=== PATIENT | male | born 1960 | race Caucasian/White ===

== ENCOUNTER 2018-02-10 17:05 | Emergency (ER) | payer OTHER ==
[~2018-02-10] VITALS: Ht 180.3 cm; Wt 94.3 kg
[~2018-02-10 17:05] MED LIST: ANTIINFLAMMATORY; APAP500 PO; AUGMENTIN 875875 MG PO; DOXYCYCLINE 10100 MG PO; DYMISTA NASAL S23 GM NS; MEDROLDOSEPACK PO; METFORMIN HCL500 MG PO; NAPROSYN500 MG PO; PROAIR HFA8.5 GM INH; PROAIR RESPICL90 MCG IH; ZPAK PO
[2018-02-10] MEDS ORDERED: HYDROCODONE-AP1 EAC6 PO (17:32)
[2018-02-10] MEDS ORDERED: IBUPROFEN 800800 M1 PO (17:32)
[2018-02-10] MEDS ORDERED: ZPAK PO (17:32)
[2018-02-10] MEDS ORDERED: AMOXICILLIN 50500 MG PO (17:32)
[2018-02-10] MEDS ORDERED: HYDROCODONE-ACE15 ML PO (17:54)
[2018-02-10] MEDS ORDERED: PENICILLIN VK500 MG PO (17:54)
[2018-02-10 18:04] VITALS: BP 147/94
== END 2018-02-10 18:06 | disposition home or self-care (01) ==
LOC: M.ERS 17:05
DX: M27.69 Other endosseous dental implant failure (principal); T81.4XXA Infection following a procedure, initial encounter; K04.7 Periapical abscess without sinus; Z88.1 Allergy status to other antibiotic agents; Y83.8 Other surgical procedures as the cause of abnormal reaction of the patient, or of later complication, without mention of misadventure at the time of the procedure; Y92.89 Other specified places as the place of occurrence of the external cause

== ENCOUNTER 2018-06-02 02:24 | Emergency (ER) | payer OTHER ==
[~2018-06-02] VITALS: Ht 177.8 cm; Wt 89.8 kg
[~2018-06-02 02:24] MED LIST changes: +AMOXICILLIN 50500 MG PO; +HYDROCODONE-ACE15 ML PO; +HYDROCODONE-AP1 EAC6 PO; +IBUPROFEN 800800 M1 PO; +PENICILLIN VK500 MG PO
[2018-06-02 02:28] VITALS: BP 128/75
[2018-06-02] MEDS ORDERED: OXYCONTIN10 M1 PO (02:39)
== END 2018-06-02 03:40 | disposition home or self-care (01) ==
LOC: M.ERS 02:24
DX: R07.89 Other chest pain (principal); Z87.01 Personal history of pneumonia (recurrent); Z88.1 Allergy status to other antibiotic agents

== ENCOUNTER 2018-07-20 23:59 | Emergency (ER) | payer OTHER ==
[~2018-07-20] VITALS: Ht 182.9 cm; Wt 90.7 kg
[~2018-07-20 23:59] MED LIST changes: +OXYCONTIN10 M1 PO
[2018-07-21] MEDS ORDERED: BACTRIM DS TAB1 EACH PO (00:53)
[2018-07-21 01:00] VITALS: BP 136/74
== END 2018-07-21 01:00 | disposition left against medical advice (07) ==
LOC: M.ERS 23:59
DX: H60.11 Cellulitis of right external ear (principal)

== ENCOUNTER 2018-10-17 06:32 | Emergency (ER) | payer OTHER ==
[~2018-10-17] VITALS: Ht 175.3 cm; Wt 68.0 kg
[~2018-10-17 06:32] MED LIST changes: +BACTRIM DS TAB1 EACH PO
== END 2018-10-17 06:52 | disposition left against medical advice (07) ==
LOC: M.ERS 06:32
DX: H02.89 Other specified disorders of eyelid (principal); Z87.01 Personal history of pneumonia (recurrent); Z88.1 Allergy status to other antibiotic agents

== ENCOUNTER 2019-02-23 17:36 | Inpatient (IN) | payer OTHER ==
[~2019-02-23] VITALS: Ht 180.3 cm; Wt 40.3 kg
[2019-02-23 17:37] VITALS: BP 147/85
[2019-02-23] MEDS ORDERED: IBUPROFEN 600600 M1 PO (17:53)
[2019-02-23] MEDS ORDERED: DIET PILL PO (17:53)
[2019-02-23] MEDS ORDERED: NASAL SPRAY (17:54)
[2019-02-23 18:01] LABS: ABSOLUTE EOSINOPHILS 0.1 thou/uL (0.0-0.7); ABSOLUTE LYMPHOCYTES 2.4 thou/uL (0.8-5.3); ABSOLUTE NEUTROPHILS 5.2 thou/uL (1.6-8.1); BASOPHILS 0.5 %; EOSINOPHILS 0.8 %; HEMATOCRIT 39.9 % (42.0-52.0); HEMOGLOBIN 13.3 gm/dL (14.0-18.0); LYMPHOCYTES 27.4 %; MCH 29.6 pg (26.0-34.0); MCHC 33.3 g/dL (28.0-37.0); MCV 88.9 fL (80.0-100.0); MONOCYTES 11.9 %; MPV 8.1 fl. (7.2-11.1); NUCLEATED RBCS 0 /100WBC; PLATELET COUNT* 267 thou/uL (150-400); POLYS 59.4 %; RBC 4.49 mil/uL (4.50-6.00); RDW-CV 14.7 % (10.5-14.5); WBC 8.8 thou/uL (4.0-11.0)
[2019-02-23 18:10] LABS: ANION GAP 13 mmol/L (7-16); BUN 17 mg/dL (7-18); CALCIUM 9.4 mg/dL (8.5-10.1); CHLORIDE 107 mmol/L (98-107); CO2 26 mmol/L (21-32); CREATININE 1.2 mg/dL (0.6-1.3); GLUCOSE 142 mg/dL (70-99); POTASSIUM 4.2 mmol/L (3.5-5.1); SODIUM 146 mmol/L (136-145)
--- NOTE | 2019-02-23 18:15 | NUR ---
ASSUMED PT CARE UPON ASSESSMENT PT DIAPHORETIC VERY CONFUSED ANXIOUS AND TACHY AT 135. NOTIFIED.
[2019-02-23 18:21] LABS: ALBUMIN 4.2 g/dL (3.4-5.0); ALKALINE PHOSPHATASE 139 U/L (46-116); SGOT 33 U/L (15-37); SGPT 29 U/L (30-65); TOTAL BILIRUBIN 0.8 mg/dL (<0.1-1.0); TOTAL PROTEIN 7.9 g/dL (6.4-8.2); TROPONIN-I LEVEL <0.06 ng/mL (<0.06)
--- NOTE | 2019-02-23 18:44 | NUR ---
TO ROOM NO NEW ORDERS AT THIS TIME
--- NOTE | 2019-02-23 18:52 | NUR ---
TEMP ROSS PLACED PT CONTINUES TO BE TACHY AT 156. URINE SENT TO LAB
--- NOTE | 2019-02-23 18:58 | NUR ---
REPORTED LOW OXYGEN LEVEL 88% ON 2LNC RR 57 TO WINTER RT CALLED FOR ABG
[2019-02-23 19:02] LABS: URINE BLOOD NEGATIVE (Negative); URINE CLARITY CLEAR; URINE COLOR YELLOW; URINE GLUCOSE-RANDOM NEGATIVE (Negative); URINE KETONES 1+ (Negative); URINE LEUKOCYTES-REFLEX NEGATIVE (Negative); URINE NITRITE-REFLEX NEGATIVE (Negative); URINE PROTEIN TRACE (Negative); URINE SPECIFIC GRAVITY >= 1.030 (1.005-1.030); URINE UROBILINOGEN 0.2 E.U./dl (0.2-1.0)
[2019-02-23 19:04] LABS: URINE BILIRUBIN 1+ (Negative)
[2019-02-23 19:05] LABS: ICTOTEST (BILI CONFIRMATORY) Negative (Negative)
[2019-02-23 19:10] LABS: AMP/METHAMP POSITIVE (Negative); BARBITURATES Negative (Negative); BENZODIAZEPINES Negative (Negative); COCAINE Negative (Negative); METHADONE Negative (Negative); OPIATES Negative (Negative); PCP Negative (Negative); THC Negative (Negative)
--- NOTE | 2019-02-23 19:15 | NUR ---
PT MOVED TO ROOM 2 FOR INTUBATION
[2019-02-23 19:24] LABS: BE -0.2 mmol/L (-2 to +3); PCO2 36.9 mmHg (35.0-45.0); PO2 71.4 mmHg (75.0-100.0); pH 7.427 (7.340-7.450)
[2019-02-23 19:47] LABS: APTT 25.7 Seconds (25.0-31.3); INR 1.1; PROTIME 10.9 Seconds (9.20-11.50)
--- NOTE | 2019-02-23 21:12 | NUR ---
BACK TO ROOM FROM CT
[2019-02-23 22:19] LABS: BE -3.7 mmol/L (-2 to +3)
[2019-02-23 22:21] LABS: PCO2 50.7 mmHg (35.0-45.0); PO2 340.1 mmHg (75.0-100.0); pH 7.284 (7.340-7.450)
[2019-02-23 23:24] VITALS: BP 144/85
[2019-02-23 23:45] VITALS: BP 111/63
[2019-02-23 23:49] VITALS: BP 131/84
[2019-02-24] VITALS (38 sets, daily range): BP systolic 84–119; BP diastolic 45–82
--- NOTE | 2019-02-24 02:28 | NUR ---
PATIENT RECEIVED FROM ER AT 2320, INTUBATED AND SEDATED, KEPT ON VENT SUPPORT, FIO2 DECREASED TO 50%, PEEP-5, TV-550, R-14. BP SOFT, MAP RANGING FROM 56-63. PROPOFOL TITRATED PER PROTOCOL. NS AT 150 MLS/HR. ADMISSION PROCESS COMPLETED. ROSS'S CATH IN-SITU. VSS, WILL CONTINUE TO MONITOR. NO FAMILY MEMBERS PRESENT AT THIS TIME.
[2019-02-24 03:32] LABS: HEMOGLOBIN 11.7 gm/dL (14.0-18.0); MCHC 33.3 g/dL (28.0-37.0); MCV 89.9 fL (80.0-100.0); MPV 7.7 fl. (7.2-11.1); NUCLEATED RBCS 0 /100WBC; PLATELET COUNT* 197 thou/uL (150-400); RBC 3.89 mil/uL (4.50-6.00); WBC 10.1 thou/uL (4.0-11.0)
[2019-02-24 03:57] LABS: ALBUMIN 3.1 g/dL (3.4-5.0); CREATININE 1.1 mg/dL (0.6-1.3); POTASSIUM 4.3 mmol/L (3.5-5.1); TOTAL BILIRUBIN 0.6 mg/dL (<0.1-1.0); TOTAL PROTEIN 6.3 g/dL (6.4-8.2)
[2019-02-24 05:27] LABS: ABSOLUTE LYMPHOCYTES 0.9 thou/uL (0.8-5.3); ABSOLUTE MONOCYTES 0.3 thou/uL (0.0-1.2); ABSOLUTE NEUTROPHILS 8.9 thou/uL (1.6-8.1); ANISOCYTOSIS 1+; PLATELET ESTIMATE ADEQUATE; POIKILOCYTOSIS 1+
[2019-02-24 08:32] LABS: CALCIUM 7.8 mg/dL (8.5-10.1); CREATININE 1.1 mg/dL (0.6-1.3); MAGNESIUM 2.3 mg/dL (1.8-2.4); POTASSIUM 4.1 mmol/L (3.5-5.1)
[2019-02-24 08:36] LABS: BE -2.1 mmol/L (-2 to +3); PCO2 40.4 mmHg (35.0-45.0); pH 7.373 (7.340-7.450)
[2019-02-24 08:40] LABS: PO2 169.9 mmHg (75.0-100.0)
--- NOTE | 2019-02-24 09:31 | NUR ---
ATTEMPT VENT WEANING TRIAL. PROPOFOL TURNED DOWN. PT RESPONDING TO COMMANDS AND MOUTING "I CANT BREATHE". RR 40S . DR OLVERA AT . TRIAL STOPPED. WILL ATTEMPT THIS AFTERNOON
--- NOTE | 2019-02-24 10:28 | EKG ---
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 02/24/19 1027 1738 1738 David Fernandez MD, [facility] /EPI
--- NOTE | 2019-02-24 11:23 | NUR ---
PT.REMAINS ON THE VENT. MAXIMILIAN SANTIAGO SAID WEANING TRIAL WAS STOPPED DUE TO RR OF 40 AND C/O NOT BEING ABLE TO BREATHE. PER ORDERS THEY WILL ATTEMPT ANOTHER TRIAL LATER. SHE SAID SHE WOULD ATTEMPT TO CALL DAUGHTER,ARIEL.
--- NOTE | 2019-02-24 11:46 | NUR ---
Nutrition: Pt assessed for 88lb. However, it should be entered as 88kg. Pt actually weighs ~190#. Defer further nutrition assessment for now.
--- NOTE | 2019-02-24 13:39 | EKG ---
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
--- NOTE | 2019-02-24 13:39 | NUR ---
PT SITTING UP IN BED REMAINS IN RESTRAINTS. PT MOUTHING " I CAN'T BREATE. GET THIS FUCKING THING OUT" AND ATTEMPTING TO MOVE HEAD TOWARDS HAND TO REMOVE ET TUBE. SEDATION CHANGED TO PRECEDEX FROM PROPOFOL. ENCOURAGED PT TO REST PENDING WEANING TRIAL THIS EVENING. HR 110S
--- NOTE | 2019-02-24 16:15 | NUR ---
SEDATION TURNED OFF. PT ON VENT WEANING TRIAL. CALM AND TOLERATING WELL
--- NOTE | 2019-02-24 16:32 | NUR ---
PT EXTUBATED. TOLERATED WELL. PT ASKING FOR WATER AND TO HAVE ROSS REMOVED. ROSS CATH REMOVED. PT 98% ON RA.
--- NOTE | 2019-02-24 17:41 | NUR ---
PT EXTUBATED THIS PM. TOLERATING WELL. MAINTAINING O2 SATS IN UPPER 90S. A&OX4. CALM AND COOPERATIVE. IV INFUSING. TOLERATING PO WELL.
--- NOTE | 2019-02-24 20:50 | NUR ---
PATIENT REQUESTING TO LEAVE AMA. REFUSED MEDICATIONS. PAGED
--- NOTE | 2019-02-24 21:25 | NUR ---
SPOKE TO DR CARTY AND EXPLAINED THAT PATIENT REQUESTING TO LEAVE AMA. EXPLAINED THE RISKS ASSOCIATED WITH LEAVING AMA AND THAT HIS CHOICE MEANS THAT THE HOSPITAL IS NOT RESPONSIBLE AFTER THE PAPERWORK IS SIGNED. PATIENT VERBALIZED UNDERSTANDING OF RISKS AND REQUESTED TO BE TAKEN OFF OF ALL MONITORS AND IV'S DISCONTINUES. THIS WAS DONE BY RN AND IVAN PAPERWORK SIGNED
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
== END 2019-02-24 21:53 | disposition left against medical advice (07) | DRG 91 ==
LOC: M.ERS 17:36 → M.ICU 21:51 → M.TBA-ER 21:51 → M.ICU 22:34
PROVIDERS: Emergency Medicine; Internal Medicine; Personal Emergency Response Attendant; ADMIT Internal Medicine
DX: G92 Toxic encephalopathy (principal); J96.02 Acute respiratory failure with hypercapnia; E87.2 Acidosis; J98.11 Atelectasis; J98.01 Acute bronchospasm; A08.4 Viral intestinal infection, unspecified; F15.10 Other stimulant abuse, uncomplicated; Z53.21 Procedure and treatment not carried out due to patient leaving prior to being seen by health care provider; Z87.01 Personal history of pneumonia (recurrent); Z79.899 Other long term (current) drug therapy